=== PATIENT | female | born 1985 | race Two or more races ===

== ENCOUNTER 2017-08-26 10:09 | Emergency (ER) | payer OTHER ==
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
[2017-08-26] MEDS ORDERED: diazePAM 5 MG TABLET PO ONE (10:36)
[2017-08-26] MEDS ORDERED: IBUPROFEN 400 MG TABLET (FP) PO ONE (10:36)
[2017-08-26 11:17] VITALS: BP 154/69; PULSE 71; TEMP 98; BMI 30.2
== END 2017-08-26 14:58 | disposition home or self-care (01) ==
LOC: JER 10:09
DX: R07.89 Other chest pain (principal); V43.52XA Car driver injured in collision with other type car in traffic accident, initial encounter; Y93.89 Activity, other specified; Y92.410 Unspecified street and highway as the place of occurrence of the external cause
CPT/HCPCS: 71020-TC; 71120-TC; 99281-25